=== PATIENT | female | born 1935 | race Two or more races ===

== ENCOUNTER 2021-08-12 22:07 | Emergency (ER) | payer OTHER ==
[~2021-08-12] VITALS: Ht 139.7 cm; Wt 47.6 kg
[2021-08-12] MEDS ORDERED: ENALAPRIL (22:54)
[2021-08-13] MEDS ORDERED: INTESTINEX680 M1 PO (01:54)
[2021-08-13] MEDS ORDERED: ULTRAM50 MG PO (01:54)
[2021-08-13] MEDS ORDERED: CLINDAMYCIN HC300 MG PO (01:54)
== END 2021-08-13 03:22 | disposition home or self-care (01) ==
LOC: ER 22:07
DX: S01.121A Laceration with foreign body of right eyelid and periocular area, initial encounter (principal); S01.82XA Laceration with foreign body of other part of head, initial encounter; W18.39XA Other fall on same level, initial encounter; Y93.89 Activity, other specified; Y92.098 Other place in other non-institutional residence as the place of occurrence of the external cause; Y99.8 Other external cause status

== ENCOUNTER → 2021-08-22 | Emergency (ER) | payer OTHER ==
[~2021-08-22] VITALS: Ht 149.9 cm; Wt 49.9 kg
[~2021-08-22] MED LIST: CLINDAMYCIN HC300 MG PO; ENALAPRIL; INTESTINEX680 M1 PO; ULTRAM50 MG PO; VASOTEC5 MG PO
== END | disposition home or self-care (01) ==
LOC: ER 11:37
DX: Z48.02 Encounter for removal of sutures (principal)

== ENCOUNTER 2023-01-03 19:38 | Emergency (ER) | payer OTHER ==
[~2023-01-03] VITALS: Ht 147.3 cm; Wt 40.4 kg
[2023-01-03] MEDS ORDERED: OMEPRAZOLE40 MG PO (19:57)
[2023-01-03] MEDS ORDERED: LOSARTAN POTASS50 MG PO (19:57)
[2023-01-03] MEDS ORDERED: HYDRALAZINE HCL25 MG PO (19:57)
[2023-01-03] MEDS ORDERED: TIZANIDINE HCL4 MG PO (19:57)
[2023-01-03] MEDS ORDERED: VITAMIN D3125 MC1 PO (19:57)
[2023-01-04] MEDS ORDERED: DOLOGESIC 500-1 EACH PO (03:20)
[2023-01-04] MEDS ORDERED: PAXLOVID 300-11 EACH PO (03:20)
[2023-01-04] MEDS ORDERED: ZYNCOF 20-400120 ML PO (03:20)
== END 2023-01-04 03:57 ==
LOC: ER 19:38
DX: U07.1 COVID-19 (principal); E86.0 Dehydration; Z88.0 Allergy status to penicillin; Z88.2 Allergy status to sulfonamides; Z88.6 Allergy status to analgesic agent

== ENCOUNTER 2023-01-13 23:43 | Emergency (ER) | payer OTHER ==
[~2023-01-13] VITALS: Ht 147.3 cm; Wt 41.7 kg
[~2023-01-13 23:43] MED LIST changes: +DOLOGESIC 500-1 EACH PO; +HYDRALAZINE HCL25 MG PO; +LOSARTAN POTASS50 MG PO; +OMEPRAZOLE40 MG PO; +PAXLOVID 300-11 EACH PO; +TIZANIDINE HCL4 MG PO; +VITAMIN D3125 MC1 PO; +ZYNCOF 20-400120 ML PO
== END 2023-01-14 01:53 | disposition home or self-care (01) ==
LOC: ER 23:43
DX: S00.03XA Contusion of scalp, initial encounter (principal); W06.XXXA Fall from bed, initial encounter; Y93.89 Activity, other specified; Y92.013 Bedroom of single-family (private) house as the place of occurrence of the external cause; Y99.9 Unspecified external cause status; Z88.6 Allergy status to analgesic agent; Z88.0 Allergy status to penicillin; Z88.2 Allergy status to sulfonamides; I10 Essential (primary) hypertension

== ENCOUNTER 2023-08-14 16:00 | Emergency (ER) | payer OTHER ==
[~2023-08-14] VITALS: Ht 142.2 cm; Wt 45.4 kg
[2023-08-14] MEDS ORDERED: NORFLEX100MG PO (21:00)
[2023-08-14] MEDS ORDERED: LIDOCAINE15 G1 TOP (21:04)
== END 2023-08-14 21:15 ==
LOC: ER 16:00
DX: M62.838 Other muscle spasm (principal)
CPT/HCPCS: 72040; 73030; 96372; 99284; J2360

== ENCOUNTER 2023-08-19 00:24 | Emergency (ER) | payer OTHER ==
[~2023-08-19] VITALS: Ht 149.9 cm; Wt 40.8 kg
[~2023-08-19 00:24] MED LIST changes: +LIDOCAINE15 G1 TOP; +NORFLEX100MG PO
== END 2023-08-19 01:09 | disposition home or self-care (01) ==
LOC: ER
DX: R10.84 Generalized abdominal pain (principal); M15.9 Polyosteoarthritis, unspecified
CPT/HCPCS: 96372; 99283; J1100

== ENCOUNTER 2024-04-18 13:12 | Emergency (ER) | payer OTHER ==
[~2024-04-18] VITALS: Ht 147.3 cm; Wt 39.5 kg
[~2024-04-18 13:12] MED LIST changes: +ENALAPRIL MALEA10 MG
[2024-04-18] MEDS ORDERED: PRILOSEC OTC20 MG (13:41)
[2024-04-18] MEDS ORDERED: DEXAMETHASONE SODIUM PHOSPHATE 4 MG/ML VIAL IM STA (14:42)
[2024-04-18] MEDS ORDERED: DEXAMETHASONE SODIUM PHOSPHATE 4 MG/ML VIAL ONE (14:47)
== END 2024-04-18 18:49 | disposition home or self-care (01) ==
LOC: ER 13:13
DX: S93.491A Sprain of other ligament of right ankle, initial encounter (principal); W01.0XXA Fall on same level from slipping, tripping and stumbling without subsequent striking against object, initial encounter; Y93.89 Activity, other specified; Y92.018 Other place in single-family (private) house as the place of occurrence of the external cause; Z88.2 Allergy status to sulfonamides; Z88.0 Allergy status to penicillin; Z88.6 Allergy status to analgesic agent; I10 Essential (primary) hypertension
CPT/HCPCS: 73600; 96372; 99283; J1100

== ENCOUNTER 2024-09-19 11:46 | Emergency (ER) | payer OTHER ==
[~2024-09-19] VITALS: Ht 142.2 cm; Wt 44.5 kg
[~2024-09-19 11:46] MED LIST changes: +PRILOSEC OTC20 MG
[2024-09-19] MEDS ORDERED: TETANUS & DIPHTHERIA TOX,ADULT 0.5 ML VIAL IM ONE (12:30)
[2024-09-19] MEDS ORDERED: TETANUS DIPHTHERIA TOX. ADSOR 5 ML VIAL IM ONE (12:32)
== END 2024-09-19 15:40 | disposition home or self-care (01) ==
LOC: ER 11:49
DX: S01.121A Laceration with foreign body of right eyelid and periocular area, initial encounter (principal); W18.39XA Other fall on same level, initial encounter; Y93.89 Activity, other specified; Y92.018 Other place in single-family (private) house as the place of occurrence of the external cause; I10 Essential (primary) hypertension; Z88.0 Allergy status to penicillin; Z88.2 Allergy status to sulfonamides; Z88.6 Allergy status to analgesic agent